=== PATIENT | male | born 1955 | race Two or more races ===

== ENCOUNTER 2019-07-20 11:07 | Emergency (ER) | payer OTHER ==
[~2019-07-20] VITALS: Ht 170.2 cm; Wt 129.3 kg
[~2019-07-20 11:07] MED LIST: CEFTIN500 MG PO; CIPRO500 MG PO; HUMULIN 70/30 V10 ML; HYZAAR 100-251 UDTAB; HumuLIN 70-30 VIAL 3ML SUBCUTANEO; Hyzaar 100-25 Tablet PO; LANTUS100 U/ML; LASIX20 MG; LEVSIN/SL0.125 MG PO; Lantus 1000 U/10 ML SUBCUTANEO; NORVASC 10 MG TAB PO; NORVASC10 MG; NORVASC10 MG PO; PERCOCET 5/3251 TAB PO; TOPROL XL200 MG; TOPROL XL25 MG; VISTARIL25 MG PO; [UNRECOGNIZED DRUG - CODE] RC
[2019-07-20] MEDS ORDERED: STEGLATRO15 MG PO (12:24)
[2019-07-20] MEDS ORDERED: BAYER THERAPY325 MG PO (12:24)
[2019-07-20] MEDS ORDERED: ZOCOR20 MG PO (12:25)
[2019-07-20] MEDS ORDERED: CANDESARTAN CIL32 MG PO (12:25)
[2019-07-20] MEDS ORDERED: TOPROL XL200 MG PO (12:25)
[2019-07-20] MEDS ORDERED: NORVASC10 MG PO (12:26)
[2019-07-20] MEDS ORDERED: BACTRIM DS TAB1 EACH PO (17:42)
== END 2019-07-20 17:59 | disposition home or self-care (01) ==
LOC: ER 11:07
DX: R10.32 Left lower quadrant pain (principal); N20.0 Calculus of kidney

== ENCOUNTER 2019-08-23 21:43 | Inpatient (IN) | payer OTHER ==
[~2019-08-23] VITALS: Ht 170.2 cm; Wt 127.0 kg
[~2019-08-23 21:43] MED LIST changes: +BACTRIM DS TAB1 EACH PO; +BAYER THERAPY325 MG PO; +CANDESARTAN CIL32 MG; +STEGLATRO15 MG PO; +TOPROL XL200 MG PO; +ZOCOR20 MG PO
[2019-08-23] MEDS ORDERED: CANDESARTAN-HC1 EAC1 (22:15)
[2019-08-23] MEDS ORDERED: JANUVIA100 MG (22:16)
== END 2019-09-28 12:20 | disposition expired | DRG 673 ==
LOC: ER 21:43 → MEDI 08-24 12:40 → MEDJ 09-20 21:16 → ICU 09-27 22:00
PROVIDERS: ADMIT Internal Medicine
PROC: BT43ZZZ Ultrasonography of Bilateral Kidneys (ICD-10-PCS; 2019-08-24)
PROC: 3E0F7GC Introduction of Other Therapeutic Substance into Respiratory Tract, Via Natural or Artificial Opening (ICD-10-PCS; 2019-09-02)
PROC: B519ZZA Fluoroscopy of Inferior Vena Cava, Guidance (ICD-10-PCS; 2019-09-10)
PROC: 3E0G76Z Introduction of Nutritional Substance into Upper GI, Via Natural or Artificial Opening (ICD-10-PCS; 2019-09-10)
PROC: 079 Lymphatic and Hemic Systems, Drainage (ICD-10-PCS; principal; 2019-09-11)
PROC: 079J3ZX Drainage of Left Inguinal Lymphatic, Percutaneous Approach, Diagnostic (ICD-10-PCS; 2019-09-11)
PROC: 0W9G3ZX Drainage of Peritoneal Cavity, Percutaneous Approach, Diagnostic (ICD-10-PCS; 2019-09-22)
PROC: 06H033Z Insertion of Infusion Device into Inferior Vena Cava, Percutaneous Approach (ICD-10-PCS; 2019-09-22)
PROC: 5A09557 Assistance with Respiratory Ventilation, Greater than 96 Consecutive Hours, Continuous Positive Airway Pressure (ICD-10-PCS; 2019-09-22)
PROC: B245ZZZ Ultrasonography of Left Heart (ICD-10-PCS; 2019-09-22)
PROC: 4A033R1 Measurement of Arterial Saturation, Peripheral, Percutaneous Approach (ICD-10-PCS; 2019-09-22)
PROC: BW21ZZZ Computerized Tomography (CT Scan) of Abdomen and Pelvis (ICD-10-PCS; 2019-09-24)
PROC: B44HZZZ Ultrasonography of Bilateral Lower Extremity Arteries (ICD-10-PCS; 2019-09-24)
PROC: BW21YZZ Computerized Tomography (CT Scan) of Abdomen and Pelvis using Other Contrast (ICD-10-PCS; 2019-09-24)
PROC: 4A12X4Z Monitoring of Cardiac Electrical Activity, External Approach (ICD-10-PCS; 2019-09-25)
DX: N39.0 Urinary tract infection, site not specified (principal); J96.00 Acute respiratory failure, unspecified whether with hypoxia or hypercapnia; R65.21 Severe sepsis with septic shock; N17.9 Acute kidney failure, unspecified; E87.2 Acidosis; C90.30 Solitary plasmacytoma not having achieved remission; N20.1 Calculus of ureter; C78.6 Secondary malignant neoplasm of retroperitoneum and peritoneum; I10 Essential (primary) hypertension; E86.0 Dehydration; E11.65 Type 2 diabetes mellitus with hyperglycemia; E87.5 Hyperkalemia; K74.69 Other cirrhosis of liver; E66.01 Morbid (severe) obesity due to excess calories; R59.0 Localized enlarged lymph nodes; Z87.442 Personal history of urinary calculi; E11.21 Type 2 diabetes mellitus with diabetic nephropathy; L89.151 Pressure ulcer of sacral region, stage 1; R31.9 Hematuria, unspecified